=== PATIENT | female | born 1990 | race Caucasian/White ===

== ENCOUNTER → 2016-09-23 | Day surgery (SDC) | payer OTHER ==
[~2016-09-23] VITALS: Ht 152.4 cm; Wt 122.0 kg
[~2016-09-23] MED LIST: COLACE 100MG C100 MG PO; IBUPROFEN600 MG PO; NORCO 5-325 TA1 EACH PO; STOOL SOFTENER100 MG PO; SUBUTEX 8 MG TAB8 MG SL
[2016-09-23 08:30] LABS: HEMOGLOBIN 14.4 gm/dl (12.3-15.3); RED BLOOD COUNT 4.53 M/UL (4.00-5.10); WHITE BLOOD COUNT 7.6 K/UL (4.5-11.0)
== END | disposition home or self-care (01) ==
LOC: OR 07:50
PROVIDERS: Obstetrics & Gynecology
PROC: 10D17ZZ Extraction of Products of Conception, Retained, Via Natural or Artificial Opening (ICD-10-PCS; principal; 2016-09-23 08:45)
DX: O02.1 Missed abortion (principal); E66.9 Obesity, unspecified; F17.200 Nicotine dependence, unspecified, uncomplicated; Z79.899 Other long term (current) drug therapy; Z87.440 Personal history of urinary (tract) infections; Z90.49 Acquired absence of other specified parts of digestive tract
CPT/HCPCS: 36415; 81001; 85025; 86850; 86900; 86901; J1885; J2250; J2405; J2795; J7120

== ENCOUNTER 2020-09-05 01:37 | Inpatient (IN) | payer OTHER ==
[~2020-09-05 01:37] MED LIST changes: +LABETALOL HCL100 MG PO; +PRENATAL VITAM1 EAC3 PO
[2020-09-05 02:42] LABS: HEMOGLOBIN 12.7 gm/dl (12.3-15.3); RED BLOOD COUNT 3.84 M/UL (4.00-5.10); WHITE BLOOD COUNT 14.9 K/UL (4.5-11.0)
[2020-09-05] MEDS ORDERED: BUPRENORPHIN-N1 EACH SL (04:01)
[2020-09-05] MEDS ORDERED: COLACE 100MG C100 MG PO (04:01)
[2020-09-05] MEDS ORDERED: IBUPROFEN600 MG PO (04:01)
[2020-09-06 06:42] LABS: HEMOGLOBIN 11.3 gm/dl (12.3-15.3)
== END 2020-09-06 18:00 | disposition home or self-care (01) | DRG 806 ==
LOC: GENOP 01:37 → OB 04:23
PROVIDERS: ADMIT Obstetrics & Gynecology
PROC: 10E0XZZ Delivery of Products of Conception, External Approach (ICD-10-PCS; principal; 2020-09-05)
PROC: 4A1HX4Z Monitoring of Products of Conception, Cardiac Electrical Activity, External Approach (ICD-10-PCS; 2020-09-05)
PROC: 0UQMXZZ Repair Vulva, External Approach (ICD-10-PCS; 2020-09-05)
DX: O10.92 Unspecified pre-existing hypertension complicating childbirth (principal); O99.324 Drug use complicating childbirth; Z37.0 Single live birth; F11.20 Opioid dependence, uncomplicated; Z3A.41 41 weeks gestation of pregnancy; Z20.822 Contact with and (suspected) exposure to COVID-19; O76 Abnormality in fetal heart rate and rhythm complicating labor and delivery; O70.0 First degree perineal laceration during delivery
CPT/HCPCS: 36415; 80307; 85014; 85018; 85025; 90471; 90715; J2590; U0002